=== PATIENT | female | born 1990 | race Caucasian/White ===

== ENCOUNTER 2016-11-17 20:00 | Inpatient (IN) | payer BC ==
[~2016-11-17] VITALS: Ht 154.9 cm; Wt 61.7 kg
[2016-11-17 20:45] VITALS: BP 121/73
[2016-11-17] MEDS ORDERED: AMPICILLIN 2000 MG INJECTION (IM/IV) ONE (20:48)
[2016-11-17] MEDS ORDERED: NORMAL SALINE (BAXTER MINI) 50 ML IV ONE (20:48)
[2016-11-17] MEDS ORDERED: MISOPROSTOL 100 MCG (CYTOTEC) TAB ONE (20:49)
[2016-11-17] MEDS: LACTATED RINGERS 1,000 ML IV SCH (21:00)
[2016-11-17 21:45] VITALS: BP 119/70
[2016-11-17] MEDS ORDERED: VALA500T4 PO (22:07)
[2016-11-17] MEDS ORDERED: PREN1TAB86 PO (22:07)
[2016-11-17] MEDS ORDERED: AMPICILLIN INJECTION 2,000 MG in NORMAL SALINE (BAXTER MINI) 50 ML IV SCH (22:10)
[2016-11-17] MEDS ORDERED: MINERAL OIL CONCENTRATE 99.9% 15 ML UDC TOP PRN (22:15)
[2016-11-17] MEDS ORDERED: LIDOCAINE/EPI 1%-1:200,000 (XYLOCAINE) 30 ML VIAL INJ PRN (22:15)
[2016-11-17 22:21] LABS: BASOPHILS % (AUTO) 0 % (0-10); EOSINOPHILS # (AUTO) 0.1 10^3/uL (0.0-0.3); EOSINOPHILS % (AUTO) 1 % (0-10); LYMPHOCYTES # (AUTO) 2.4 X 10^3 (1.0-4.0); LYMPHOCYTES % (AUTO) 21 % (12-44); MEAN CORPUSCULAR HEMOGLOBIN 30 PG (25-34); MEAN CORPUSCULAR HGB CONC 34 G/DL (32-36); MEAN CORPUSCULAR VOLUME 89 FL (80-99); MEAN PLATELET VOLUME 10.9 FL (7.4-10.4); MONOCYTES # (AUTO) 0.8 X 10^3 (0.0-1.0); MONOCYTES % (AUTO) 7 % (0-12); NEUTROPHILS # (AUTO) 8.4 X 10^3 (1.8-7.8); NEUTROPHILS % (AUTO) 72 % (42-75); PLATELET COUNT 305 10^3/uL (130-400); RED BLOOD COUNT 4.05 10^6/uL (4.35-5.85); RED CELL DISTRIBUTION WIDTH 14.5 % (10.0-14.5); WHITE BLOOD COUNT 11.8 10^3/uL (4.3-11.0)
[2016-11-17 22:55] VITALS: BP 116/74
[2016-11-18] VITALS (39 sets, daily range): BP systolic 95–130; BP diastolic 50–72
[2016-11-18] MEDS ORDERED: DINOPROSTONE 10 MG (CERVIDIL) INSERT PV ONE (02:30)
[2016-11-18] MEDS ORDERED: fentaNYL INJECTION 100 MCG/2 ML AMP IVP PRN (02:45)
[2016-11-18] MEDS: AMPICILLIN INJECTION 1,000 MG in NORMAL SALINE (BAXTER MINI) 50 ML IV SCH ×3 (03:10→15:34)
[2016-11-18] MEDS ORDERED: CATHETER FLUSH 10 ML SYR IV SCH (06:00)
[2016-11-18] MEDS ORDERED: D5 LR IV SOLUTION 1,000 ML IV ONE ×2 (08:16→15:05)
[2016-11-18] MEDS ORDERED: OXYTOCIN/NORMAL SALINE 500 ML IV SCH (09:45)
--- NOTE | 2016-11-18 10:17 | History & Physical-OB ---
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, no prodromal symptoms, has been taking valtrex as prescribed History of Labs B+ Antibody neg RI Hep B neg RPR NR HIV neg HSV+ GBS+ GC/CT/neg/neg Allergies and Home Medications Allergies Coded Allergies: No Known Drug Allergies (Unverified , 11/17/16) Home Medications Vit W-Ca,Fe,FA(<1 mg) 1 Each Tablet 1 EACH PO DAILY (Reported) Valacyclovir HCl 500 Mg Tablet 500 MG PO BID (Reported) OB - History Hx of Present Care: Yes Ultrasounds: Normal mid trimester US Obstetrical Complications: None Medical Complications: Other (HSV) Information Induced Hypertension: No Maternal Gestational Diabetes: No Hemorrhage: No Obstetrical History Hx : 1 Hx Para: 0 Delivery History Adverse Rxn to Tranfusion: No Patient Past Medical History see above Social History/Family History HIV/AIDS: No Recent Infectious Disease Expo: No Sexually Transmitted Disease: Yes (herpies on valtrex) Alcohol Use: Denies Use Recreational Drug Use: No Immunizations Date of Pneumonia Vaccine: Aug 28, 2016 Date of Influenza Vaccine: Aug 14, 2016 OB - Admission Exam Physical Exam Vitals: Vital Signs 11/17/16 11/18/16 20:45 06:09 Temp 98.0 Pulse 78 Resp 18 B/P 98/50 O2 Delivery Room Air HEENT: NCAT Heart: Rhythm Normal Lungs: Crackles Abdomen: Gravid Extremities: Normal Reflexes: Normal Cervical Dilatation: 2cm Effacement: 75% Station: -1 Membranes: Intact Heart Rate: 140's Accelerations: Accelerations Present Decelerations: Variable Decelerations (occasional, rare variables, no longer than 30s duration, melanie > 90) Manager Skilled Variability: Average (6-25) Contractions on Admission: 6-10 Minutes Apart Domínguez Scoring Tool (Modified) Dilation (cm): 1-2cm (1) Effacement (%): 80-100% (3) Descent/Station: -1,0 (2) Cervix Consistency: Soft (2) Cervix Position: Anterior (2) Subtract 1 point for: Nulliparity (-1) Domínguez Score: 9 Labs Laboratory Tests Test 11/17/16 21:20 Range/Units Basophils # (Auto) 0.0 0.0-0.1 10^3/uL Basophils (%) (Auto) 0 0-10 % Eosinophils # (Auto) 0.1 0.0-0.3 10^3/uL Eosinophils (%) (Auto) 1 0-10 % Hematocrit 36 35-52 % Hemoglobin 12.3 11.5-16.0 G/DL Lymphocytes # (Auto) 2.4 1.0-4.0 X 10^3 Lymphocytes (%) (Auto) 21 12-44 % Mean Corpuscular Hemoglobin 30 25-34 PG Mean Corpuscular Hemoglobin Concent 34 32-36 G/DL Mean Corpuscular Volume 89 80-99 FL Mean Platelet Volume 10.9 H 7.4-10.4 FL Monocytes # (Auto) 0.8 0.0-1.0 X 10^3 Monocytes (%) (Auto) 7 0-12 % Neutrophils # (Auto) 8.4 H 1.8-7.8 X 10^3 Neutrophils (%) (Auto) 72 42-75 % Platelet Count 305 130-400 10^3/uL Red Blood Count 4.05 L 4.35-5.85 10^6/uL Red Cell Distribution Width 14.5 10.0-14.5 % White Blood Count 11.8 H 4.3-11.0 10^3/uL OB - Assessment/Plan/Diagnosis Plan Plan: Induction Induction Method: per Pitocin Protocol Other Plan 26 y/o G1 @ 40w2d here for elective IOL, GBS+ H/o HSV, on valtrex, no lesions on exam/prodromal symptoms noted Amp per protocol S/p cytotec, cervidil - start pitocin Will AROM when in good contraction pattern ASVD PASHA PEREZ MD Nov 18, 2016 10:17
--- NOTE | 2016-11-18 10:19 | Discharge Inst-Women's Service ---
Discharge Inst-Women's Serv Depart Medication/Instructions New, Converted or Re-Newed RX: RX on Chart Final Diagnosis TIUP, IOL Consults/Follow Up Additional Follow Up: Yes Orders/Referrals [address] Siddiqui Activity Activity: Activity as Tolerated Driving Instructions: You May Drive (unless taking narcotic pain medications) NO SMOKING: NO SMOKING Nothing Inside Vagina: No Douching, No [place], No Tampons Other Activity No heavy lifting, strenuous activity for 2 weeks Diet Discharge Diet: No Restrictions Symptoms to Report to : Bleeding Excessive, Pain Increased, Fever Over 101 Degrees F, Pain/Pressure in Chest, Vaginal Bleeding Increase, Dizziness/Fainting , Nausea/Vomiting, Shortness of Breath For Any Problems or Questions: Contact Your Physician PASHA SIDDIQUI MD Nov 18, 2016 10:19
[2016-11-18] MEDS ORDERED: SUFENTA 1 MCG/ML BUPIVA 0.1% 100 ML ONE (11:23)
[2016-11-18] MEDS ORDERED: LIDOCAINE PF 2% 10 ML (XYLOCAINE) AMP ONE ×3 (11:36→16:25)
[2016-11-18] MEDS ORDERED: BUPIVACAINE 0.25% 30 ML (SENSORCAINE) VIAL ONE ×2 (11:36→11:42)
[2016-11-18] MEDS ORDERED: fentaNYL INJECTION 100 MCG/2 ML AMP ONE (11:42)
[2016-11-18] MEDS ORDERED: LACTATED RINGERS 1,000 ML IV SCH (12:35)
[2016-11-18] MEDS ORDERED: ONDANSETRON 4 MG/2 ML (SDV) Z0FRAN IV PRN ×2 (12:45→17:45)
[2016-11-18] MEDS ORDERED: diphenhydrAMINE 50 MG/ML INJ (BENADRYL) IV PRN (12:45)
[2016-11-18] MEDS ORDERED: EPIDURAL (SUFENTANIL 1 MCG/ML BUPIVACAINE 0.1%) 100 ML EPI PRN (12:45)
[2016-11-18] MEDS ORDERED: NALOXONE 0.4 MG/ML 1 ML (NARCAN) VIAL IV PRN (12:45)
--- NOTE | 2016-11-18 12:57 | Progress Note-Standard ---
Standard Progress Note Progress Notes/Assess & Plan Date Seen 11/18/16 Assess & Plan/Chief Complaint HD#2 Labor Update Note Pt doing well with epidural Vital Sign - Last 12Hours 11/18/16 11/18/16 11/18/16 11/18/16 02:40 04:58 06:09 08:30 Temp 97.8 98.0 98.0 97.7 Pulse 83 93 78 Resp B/P 125/62 110/57 98/50 11/18/16 11/18/16 11/18/16 11/18/16 08:40 09:00 10:15 10:30 Pulse 85 85 89 97 Resp B/P 98/53 108/65 100/68 11/18/16 10:45 Pulse 87 Resp 18 B/P 121/62 Intake and Output 11/18/16 00:00 Intake Total 550 ml Balance 550 ml SVE 3+/80/-1, AROM clear FHR 140/min to mod maritza/occasional variable decels, accelerations present TOCO 3/10 A/P: 26 y/o G1 @ 40w2d here for IOL, GBS+ Pit/AROM, s/p cytotec/cervidil ASVD Labs Laboratory Tests 11/17/16 21:20 PASHA PEREZ MD Nov 18, 2016 12:57
[2016-11-18] MEDS: LACTATED RINGERS 1,000 ML IV SCH (15:20)
[2016-11-18] MEDS ORDERED: METOCLOPRAMIDE INJ 10 MG/2 ML (REGLAN) ONE (16:19)
[2016-11-18] MEDS ORDERED: FAMOTIDINE 20MG/2ML IV (PEPCID) ONE (16:19)
[2016-11-18] MEDS ORDERED: CITRIC ACID/SOB CIT (BICITRA) 30 ML UDC ONE (16:19)
[2016-11-18] MEDS ORDERED: ceFAZolin 1,000 MG (ANCEF) VIAL ONE (16:20)
[2016-11-18] MEDS ORDERED: NORMAL SALINE (BAXTER MINI) 50 ML IV ONE (16:20)
[2016-11-18] MEDS ORDERED: BUPIVACAINE 0.5% 30 ML (SENSORCAINE) VIAL ONE (16:25)
--- NOTE | 2016-11-18 16:40 | Progress Note-Standard ---
Standard Progress Note Progress Notes/Assess & Plan Date Seen 11/18/16 Assess & Plan/Chief Complaint HD#2 Labor Update Note Pt doing well with epidural Vital Sign - Last 12Hours 11/18/16 11/18/16 11/18/16 11/18/16 02:40 04:58 06:09 08:30 Temp 97.8 98.0 98.0 97.7 Pulse 83 93 78 Resp 18 B/P 125/62 110/57 98/50 11/18/16 11/18/16 11/18/16 11/18/16 08:40 09:00 10:15 10:30 Pulse 85 85 89 97 Resp 18 B/P 98/53 108/65 100/68 11/18/16 10:45 Pulse 87 Resp 18 B/P 121/62 Intake and Output 11/18/16 00:00 Intake Total 550 ml Balance 550 ml SVE 4/80/-1 FHR 140, mostly minimal variability, no accels, no response to scalp stimulation TOCO 3-4/10 A/P: 26 y/o G1 @ 40w2d here for IOL, GBS+, now with persistent category 2 tracing despite interventions and remote from delivery I discussed with Mirna that the category 2 tracing is persistent and I am concerned that with loss of response to scalp stimulation, the fetus may not tolerate continued labor. She is a G1 and remote from delivery so I recommended delivery. We discussed risks, benefits and alternatives to the procedure including but not limited to bleeding, infection, damage to surrounding structures (of both mother and infant), perioperative morbidity/ mortality. She is aware of these risks and agrees with my recommendation at this time. Labs Laboratory Tests 11/17/16 21:20 PASHA PEREZ MD Nov 18, 2016 16:40
[2016-11-18] MEDS ORDERED: OXYC-197 PO (16:42)
[2016-11-18] MEDS ORDERED: DOCU-143 PO (16:42)
[2016-11-18] MEDS ORDERED: IBUP-1773 PO (16:42)
[2016-11-18] MEDS ORDERED: FERR-74 PO (16:42)
--- NOTE | 2016-11-18 16:44 | Discharge Inst-Women's Service ---
Discharge Inst-Women's Serv Depart Medication/Instructions New, Converted or Re-Newed RX: RX on Chart Final Diagnosis TIUP, IOL, category 2 tracing remote from delivery, delivery Consults/Follow Up Additional Follow Up: Yes Orders/Referrals 10-[address] Siddiqui [address] Siddiqui Activity Driving Instructions: No Driving for 1 Week (or while taking narcotic pain medications) NO SMOKING: NO SMOKING Nothing Inside Vagina: No Douching, No [place], No Tampons Other Activity No strenuous activity, no heavy lifting > 10 lb until cleared by Dr. Siddiqui Diet Discharge Diet: No Restrictions Symptoms to Report to : Bleeding Excessive, Pain Increased, Fever Over 101 Degrees F, Pain/Pressure in Chest, Vaginal Bleeding Increase, Dizziness/Fainting , Nausea/Vomiting, Shortness of Breath For Any Problems or Questions: Contact Your Physician Skin/Wound Care Infection Signs and Symptoms: Increased Redness, Foul Odor of Wound, Increased Drainage Operative Area Clean and Dry: Keep Incision Clean/Dry Stitches/Faisal/Dermabond: Dermabond Bathing Instructions: PASHA Bell MD Nov 18, 2016 16:44
--- NOTE | 2016-11-18 16:47 | Cesarean Section Operative ---
Procedure Procedure Note Date of Procedure: November 18, 2016 Pre-operative Diagnosis: Mirna Gray is a 26 y/o G1 @ 40w2d with induction of labor, intolerance to labor with persistent category 2 tracing remote from delivery, GBS+ Post-operative Diagnosis: Same plus occiput posterior presentation Procedure: Primary low transverse section Physician: Janeen Siddiqui MD Tooth Polisher: Doreen Bolton DO who was required for retraction of essential neurovascular structures Estimated blood loss: 650 mL Disposition: Recovery room, stable Specimens: Placenta, cord blood/gas Findings: Viable female infant, Apgars 6/9, weight [id number], intact placenta, 3vc, normal appearing uterus, tubes, and ovaries. Indications: Mirna Gray is a 26 y/o G1 @ 40w2d who presented for scheduled induction of labor. Cervical ripening was undertaken with cytotec and subsequently cervidil. AROM occurred with clear fluid and pitocin was started. She progressed to 4cm dilated but the fetus was noted to have a category 2 tracing with minimal variability, variable decelerations and few accelerations and was counseled on the need to expedite delivery after conservative resuscitative measures failed. Procedure Details: The patient was seen in pre-op and the procedure was discussed with the patient in full, including the risks, benefits, and alternatives. All questions were answered. The patient was taken to the operating room and a time out was performed, verifying patient and procedure. After bolus of epidural analgesia, the patient was placed in the dorsal supine with leftward tilt for uterine displacement. Her abdomen was then prepped and draped in the typical sterile fashion. A Pfannenstiel skin incision was made using a scalpel and carried down through the underlying fascia. The fascia was incised in the midline and tented up using Roxanne clamps. On both the inferior and superior fascia side the rectus muscle was dissected off bluntly and sharply using Peguero scissors. The peritoneum was identified and entered bluntly in the midline. This was then stretched laterally using manual strength. After entering the abdominal cavity and confirming lack of intraperitoneal adhesions, a large Arthur retractor was placed and the lower uterine segment was visualized. A bladder flap was created with the use of Metzenbaum scissors. A scalpel was utilized to make a low transverse uterine incision. The infant's head was grasped and brought to the level of the incision. Fundal pressure was applied and infant was delivered without difficulty. Mouth and nares were suctioned with bulb suction. After the umbilical cord was clamped and cut, the was handed off to the pediatric staff. A sample of cord blood was then obtained, as well as cord blood gas. The placenta was delivered intact via uterine massage. The uterus was cleared of all clots and debris. The uterine incision was closed using 0 Vicryl in a running locked fashion. A second imbricated layer was placed using 0 Vicryl in a running fashion as well. The hysterotomy site was examined and hemostasis was observed. The bilateral tubes and ovaries appeared normal. The abdominal gutters were cleared of all clots and debris. A final check of the uterine incision showed it to be hemostatic. Intercede was placed over the hysterotomy. The peritoneum was closed using 3-0 Vicryl in a running fashion. The fascia was closed with 0 Vicryl in a running fashion. The subcutaneous space was hemostatic, and irrigated. The subcutaneous space was closed with 3-0 Vicryl in several single interrupted stitches. The skin was then closed using 4-0 Monocryl in a running subcuticular fashion. The skin edges were reapproximated together and were hemostatic. A pressure dressing was applied. All sponge, lap and needle counts were correct at the end of the procedure per nursing. Copies To 2: JANEEN SIDDIQUI MD, ERIN N MD Nov 18, 2016 16:47 Date Time Temp Pulse Resp B/P Pulse Ox O2 Delivery O2 Flow Rate FiO2 11/18/16 15:15 104/51 11/18/16 15:00 18 98/57 11/18/16 14:45 18 95/52 11/18/16 14:30 96.6 11/18/16 14:15 82 18 130/56 11/18/16 14:00 85 105/56 100 11/18/16 13:45 77 96/52 100 11/18/16 13:30 86 100 11/18/16 13:15 60 18 101/60 99 11/18/16 13:00 97.0 81 100 11/18/16 12:53 71 101/59 100 11/18/16 12:50 74 106/55 100 11/18/16 12:48 75 106/57 100 11/18/16 12:45 85 104/57 100 1/18/17 12:42 96 18 108/57 97 11/18/16 12:39 96 103/65 97 11/18/16 12:36 88 111/65 97 11/18/16 12:30 83 18 110/55 100 17 12:26 94 18 122/59 98 11/18/16 12:23 85 113/57 98 11/18/16 12:15 98 18 121/63 100 11/18/16 12:10 96 18 130/61 100 11/18/16 12:05 88 107/63 97 11/18/16 12:00 97 111/67 100 11/18/16 11:55 84 18 110/72 100 11/18/16 11:45 11/18/16 11:30 11/18/16 11:15 90 18 104/70 11/18/16 11:00 98.6 85 18 109/72 11/18/16 10:45 87 18 121/62 11/18/16 10:30 97 18 100/68 11/18/16 10:15 89 18 108/65 11/18/16 09:00 85 18 11/18/16 08:40 85 18 98/53 11/18/16 08:30 97.7 11/18/16 06:09 98.0 78 18 98/50 11/18/16 04:58 98.0 93 18 110/57 11/18/16 02:40 97.8 83 18 125/62 11/18/16 00:55 77 18 108/60 11/18/16 00:16 78 18 115/70 11/17/16 22:55 97.6 72 18 116/74 11/17/16 21:45 88 18 119/70 11/17/16 20:45 97.6 85 18 121/73 Room Air I & O 11/18/16 07:00 Intake Total 1600 ml Balance 1600 ml Labs Laboratory Tests 11/17/16 21:20: Basophils # (Auto) 0.0, Basophils (%) (Auto) 0, Eosinophils # (Auto) 0.1, Eosinophils (%) (Auto) 1, Hematocrit 36, Hemoglobin 12.3, Lymphocytes # (Auto) 2.4, Lymphocytes (%) (Auto) 21, Mean Corpuscular Hemoglobin 30, Mean Corpuscular Hemoglobin Concent 34, Mean Corpuscular Volume 89, Mean Platelet Volume 10.9H, Monocytes # (Auto) 0.8, Monocytes (%) (Auto) 7, Neutrophils # ( Auto) 8.4H, Neutrophils (%) (Auto) 72, Platelet Count 305, Red Blood Count 4.05L , Red Cell Distribution Width 14.5, White Blood Count 11.8H JANEEN SIDDIQUI MD Nov 18, 2016 16:47
[2016-11-18] MEDS ORDERED: OXYTOCIN/NORMAL SALINE 500 ML IV ONE (17:26)
[2016-11-18] MEDS ORDERED: KETOROLAC 30 MG/ML VIAL ONE (17:26)
[2016-11-18] MEDS ORDERED: ONDANSETRON 4 MG/2 ML (SDV) Z0FRAN IVP PRN (18:15)
[2016-11-18] MEDS ORDERED: TETANUS,DIPTH,PERTUSS P/F (BOOSTRIX) 0.5 ML VIAL IM SCH (18:15)
[2016-11-18] MEDS ORDERED: MEASLES,MUMPS,RUBELLA 1 EA INJ SC SCH (18:15)
[2016-11-18] MEDS: KETOROLAC 30 MG/ML VIAL IVP SCH (18:15)
[2016-11-18] MEDS: OXYTOCIN/NORMAL SALINE 500 ML IV SCH ×2 (18:52→23:24)
[2016-11-18] MEDS: DOCUSATE SODIUM 100 MG (COLACE) CAP PO SCH (21:10)
[2016-11-18] MEDS ORDERED: MISOPROSTOL 100 MCG (CYTOTEC) TAB PO ONE (22:00)
[2016-11-18] MEDS ORDERED: AMPICILLIN INJECTION 2,000 MG in NORMAL SALINE (BAXTER MINI) 50 ML IV ONE (22:10)
[2016-11-18] MEDS: oxyCODONE/APAP 5/325MG (PERCOCET 5) TABLET PO PRN (23:24)
[2016-11-19] MEDS: KETOROLAC 30 MG/ML VIAL IVP SCH ×2 (00:42→06:22)
[2016-11-19 01:00] VITALS: BP 114/64
[2016-11-19 04:00] VITALS: BP 114/67
[2016-11-19 06:31] LABS: BASOPHILS % (AUTO) 0 % (0-10); EOSINOPHILS % (AUTO) 0 % (0-10); LYMPHOCYTES # (AUTO) 1.9 X 10^3 (1.0-4.0); LYMPHOCYTES % (AUTO) 14 % (12-44); MEAN CORPUSCULAR HEMOGLOBIN 30 PG (25-34); MEAN CORPUSCULAR HGB CONC 34 G/DL (32-36); MEAN CORPUSCULAR VOLUME 89 FL (80-99); MEAN PLATELET VOLUME 9.9 FL (7.4-10.4); MONOCYTES % (AUTO) 7 % (0-12); NEUTROPHILS # (AUTO) 10.6 X 10^3 (1.8-7.8); NEUTROPHILS % (AUTO) 79 % (42-75); PLATELET COUNT 224 10^3/uL (130-400); RED BLOOD COUNT 3.25 10^6/uL (4.35-5.85); WHITE BLOOD COUNT 13.6 10^3/uL (4.3-11.0)
--- NOTE | 2016-11-19 09:43 | Progress Note-Standard ---
Standard Progress Note Progress Notes/Assess & Plan Progress/Assessment & Plan Patient doing well today, POD 1 PLTCS. Reports light lochia. Pain well controlled. Ambulating and voiding freely. Tolerating regular diet. Vital Sign - Last 24 Hours 11/18/16 11/18/16 11/18/16 11/18/16 10:15 10:30 10:45 11:00 Temp 98.6 Pulse 89 97 87 85 Resp 18 18 18 18 B/P 108/65 100/68 121/62 109/72 11/18/16 11/18/16 11/18/16 11/18/16 11:15 11:30 11:45 11:55 Pulse 90 84 Resp 18 18 B/P 104/70 110/72 Pulse Ox 100 11/18/16 11/18/16 11/18/16 11/18/16 12:00 12:05 12:10 12:15 Pulse 97 88 96 98 Resp 18 18 B/P 111/67 107/63 130/61 121/63 Pulse Ox 100 97 100 100 11/18/16 11/18/16 11/18/16 11/18/16 12:23 12:26 12:30 12:36 Pulse 85 94 83 88 Resp 18 18 B/P 113/57 122/59 110/55 111/65 Pulse Ox 98 98 100 97 11/18/16 11/18/16 11/18/16 11/18/16 12:39 12:42 12:45 12:48 Pulse 96 96 85 75 Resp 18 B/P 103/65 108/57 104/57 106/57 Pulse Ox 97 97 100 100 11/18/16 11/18/16 11/18/16 11/18/16 12:50 12:53 13:00 13:15 Temp 97.0 Pulse 74 71 81 60 Resp 18 B/P 106/55 101/59 101/60 Pulse Ox 100 100 100 99 11/18/16 11/18/16 11/18/16 11/18/16 13:30 13:45 14:00 14:15 Pulse 86 77 85 82 Resp 18 B/P 96/52 105/56 130/56 Pulse Ox 100 100 100 11/18/1617 11/18/16 11/18/16 14:30 14:45 15:00 15:15 Temp 96.6 Resp 18 18 B/P 95/52 98/57 104/51 11/18/16 11/18/16 11/18/16 11/18/16 15:30 15:45 16:00 16:15 Pulse 85 63 63 64 B/P 102/56 108/66 110/63 115/72 O2 Delivery Non Rebreather Non Rebreather Non Rebreather Non Rebreather O2 Flow Rate 10.00 10.00 10.00 10.00 11/18/16 11/18/16 11/18/16 11/18/16 16:30 16:42 20:10 21:10 Temp 99.3 99.5 Pulse 74 87 Resp 18 18 B/P 114/72 117/72 Pulse Ox 99 O2 Delivery Non Rebreather Non Rebreather Room Air Room Air O2 Flow Rate 10.00 10.00 11/19/16 11/19/16 01:00 04:00 Temp 99.2 98.7 Pulse 82 93 Resp 18 18 B/P 114/64 114/67 Pulse Ox 98 98 O2 Delivery Room Air Room Air Intake and Output 11/18/16 11/18/16 11/19/16 15:00 23:00 07:00 Intake Total 1000 ml 600 ml 2260 ml Output Total 1050 ml 1200 ml Balance 1000 ml -450 ml 1060 ml INcision: c/d/i Laboratory Tests Test 11/19/16 06:06 Range/Units Basophils # (Auto) 0.0 0.0-0.1 10^3/uL Basophils (%) (Auto) 0 0-10 % Eosinophils # (Auto) 0.0 0.0-0.3 10^3/uL Eosinophils (%) (Auto) 0 0-10 % Hematocrit 29 L 35-52 % Hemoglobin 9.8 #L 11.5-16.0 G/DL Lymphocytes # (Auto) 1.9 1.0-4.0 X 10^3 Lymphocytes (%) (Auto) 14 12-44 % Mean Corpuscular Hemoglobin 30 25-34 PG Mean Corpuscular Hemoglobin Concent 34 32-36 G/DL Mean Corpuscular Volume 89 80-99 FL Mean Platelet Volume 9.9 7.4-10.4 FL Monocytes # (Auto) 1.0 0.0-1.0 X 10^3 Monocytes (%) (Auto) 7 0-12 % Neutrophils # (Auto) 10.6 H 1.8-7.8 X 10^3 Neutrophils (%) (Auto) 79 H 42-75 % Platelet Count 224 130-400 10^3/uL Red Blood Count 3.25 L 4.35-5.85 10^6/uL Red Cell Distribution Width 14.0 10.0-14.5 % White Blood Count 13.6 H 4.3-11.0 10^3/uL Diagnosis: POD 1 PLTCS Acute blood loss anemia P: Continue routine PO care replace iron Anticipate dc tomorrow if continues to improve SHELL ANDERSON DO Nov 19, 2016 9:43 am
[2016-11-19] MEDS: DOCUSATE SODIUM 100 MG (COLACE) CAP PO SCH ×2 (09:46→20:52)
[2016-11-19] MEDS: FERROUS SULF 325 MG (IRON) TAB PO SCH (09:46)
[2016-11-19] MEDS: oxyCODONE/APAP 5/325MG (PERCOCET 5) TABLET PO PRN ×2 (09:47→18:52)
[2016-11-19 09:49] VITALS: BP 110/76
[2016-11-19] MEDS ORDERED: IBUPROFEN 800 MG (MOTRIN) TAB PO ONE (12:27)
[2016-11-19] MEDS: IBUPROFEN 800 MG (MOTRIN) TAB PO SCH ×2 (12:36→17:51)
[2016-11-19 14:20] VITALS: BP 108/72
--- NOTE | 2016-11-19 14:23 | Anesthesia-Regional Post-Op ---
Regional Patient Condition Mental Status: Alert, Oriented x3 Circulation: Same as Pre-Op Headache: Absent Sensation: Full Recovery Motor Block: Absent Post Op Complications Complications None Follow Up Care/Instructions Patient Instructions None needed. Anesthesia/Patient Condition Patient is doing well, no complaints, stable vital signs, no apparent adverse anesthesia problems. No complications reported per nursing. IQRA BOLTON CRNA Nov 19, 2016 14:23
[2016-11-19 20:52] VITALS: BP 105/70
[2016-11-20] MEDS: IBUPROFEN 800 MG (MOTRIN) TAB PO SCH ×2 (02:08→08:07)
[2016-11-20 02:09] VITALS: BP 106/69
[2016-11-20] MEDS: oxyCODONE/APAP 5/325MG (PERCOCET 5) TABLET PO PRN ×2 (02:09→10:09)
[2016-11-20 08:04] VITALS: BP 111/77
--- NOTE | 2016-11-20 09:14 | Progress Note-Standard ---
Standard Progress Note Progress Notes/Assess & Plan Progress/Assessment & Plan Patient doing well today, POD 2 PLTCS. Reports light lochia. Pain well controlled. Ambulating and voiding freely. Tolerating regular diet. Vital Signs 11/18/16 11/20/16 16:42 08:04 Temp 99.1 Pulse 82 Resp 18 B/P 111/77 Pulse Ox 99 O2 Delivery Room Air O2 Flow Rate 10.00 INcision: c/d/i Diagnosis: POD 2 PLTCS Acute blood loss anemia P: Continue routine PO care replace iron DC today SHELL ANDERSON DO Nov 20, 2016 9:14 am
[2016-11-20] MEDS: FERROUS SULF 325 MG (IRON) TAB PO SCH (10:09)
--- NOTE | 2016-12-02 18:08 | Discharge Summary ---
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, no prodromal symptoms, has been taking valtrex as prescribed Discharge Summary Discharge Physical Examination Allergies: Coded Allergies: No Known Drug Allergies (Unverified , 11/17/16) Vitals & I&Os See nursing documentation General Appearance: Alert, Oriented X3 Abdominal: Soft, No Tenderness, Other (incision c/d/i) Hospital Course Mirna is a 26 y/o G1 who presented for post-dates IOL intolerance to labor was noted and remote from delivery despite resuscitative measures, did not improve Primary CD was performed Post-op course was unremarkable She was discharged home in stable condition with her infant Discharge Instructions to patient/family Please see electonic discharge instructions given to patient. Discharge Medications Reviewed and agree with Discharge Medication list on patient's Discharge Instruction sheet Clinical Quality Measures DVT/VTE Risk/Contraindication: Risk Factor Score Per Nursin RFS Level Per Nursing on Admit: 1=Low/No VTE PPX PASHA PEREZ MD Dec 02, 2016 18:08
== END 2016-11-20 14:00 | disposition home or self-care (01) | DRG 765 ==
LOC: LDRP 20:39
PROVIDERS: ADMIT Obstetrics & Gynecology; ATTEND Obstetrics & Gynecology
PROC: 3E0DXGC Introduction of Other Therapeutic Substance into Mouth and Pharynx, External Approach (ICD-10-PCS; 2016-11-17)
PROC: 10D00Z1 Extraction of Products of Conception, Low, Open Approach (ICD-10-PCS; principal; 2016-11-18 16:45)
DX: O64.0XX0 Obstructed labor due to incomplete rotation of fetal head, not applicable or unspecified (principal); O98.52 Other viral diseases complicating childbirth; O99.824 Streptococcus B carrier state complicating childbirth; O90.81 Anemia of the puerperium; D62 Acute posthemorrhagic anemia; Z37.0 Single live birth; Z3A.40 40 weeks gestation of pregnancy
CPT/HCPCS: 36415; 85025; 86850; 86900; 86901; 94664

== ENCOUNTER → 2018-03-14 | Outpatient (CLI) | payer BC ==
[~2018-03-14] MED LIST: DOCU-143 PO; FERR325T18 PO; IBUP-1773 PO; OXYC-197 PO; PREN1TAB86 PO; VALA500T4 PO
--- NOTE | 2018-03-14 17:12 | Diagnostic Imaging Report ---
INDICATION: anatomy survey. TECHNIQUE: Multiple real-time grayscale images were obtained over the gravid uterus. COMPARISON: None FINDINGS: There is a single live intrauterine . Due to advanced gestational age, maternal adnexa are not well visualized. The amount of amniotic fluid appears visually appropriate. The placenta is posterior and fundal in position, and there is no previa. Cervix is closed measuring approximately 4.1 cm in length. anatomy survey was performed, and the following structures are normal: Cerebellum, cisterna magna, cerebral ventricles, umbilical cord insertion, urinary bladder, four-chamber heart, stomach, and both lower extremities. The spine was suboptimally visualized in its entirety. Biometrical measurements are as follows: Biparietal 4.9 cm, age 20 weeks 6 days. Head circumference 17.59 cm, age 20 weeks 1 days. Abdominal circumference 15.72 cm, age 21 weeks 0 days. Femur length 3.21 cm, age 20 weeks 0 days. Sonographic estimate age: 20 weeks 4 days. Sonographic estimated date of delivery: 07/28/2018. Estimated Weight: 354 gm (+/- 52 gm). LMP percentile: 85%. heart rate: 146 beats per minute. number: 1 of 1. IMPRESSION: Single live intrauterine with normal anatomy survey. The spine was suboptimally seen, and a followup short-term ultrasound could be performed for better assessment. Dictated by: Dictated on workstation # [id number]
== END ==
LOC: RAD 15:29
PROVIDERS: ATTEND Obstetrics & Gynecology
DX: Z36.89 Encounter for other specified antenatal screening (principal); Z3A.20 20 weeks gestation of pregnancy
CPT/HCPCS: 76805

== ENCOUNTER → 2018-05-23 | Outpatient (CLI) | payer BC ==
--- NOTE | 2018-05-23 15:29 | Diagnostic Imaging Report ---
INDICATION: Followup spine. TECHNIQUE: Multiple real-time grayscale images were obtained over the gravid uterus. COMPARISON: 03/14/2018. FINDINGS: There is a single living intrauterine in a cephalic presentation. The placenta is posterior. There is no previa. The amniotic fluid index is 10.3. Heart rate is 149 beats per minute and regular. The evaluation of the spine was within normal limits. Biometry correlates with gestational age of 31 weeks 3 days. Biometrical measurements are as follows: Biparietal 8.2 cm, age 32 weeks 6 days. Head circumference 29.3 cm, age 32 weeks 3 days. Abdominal circumference 25.0 cm, age 29 weeks 2 days. Femur length 5.9 cm, age 5.9 weeks 30 days. Sonographic estimate age: 31 weeks 3 days. Sonographic estimated date of delivery: 07/22/18. Estimated Weight: 1547 gm (+/- 226 gm). LMP percentile: 58%. heart rate: 6 beats per minute. number: 1 of 1. IMPRESSION: Single living intrauterine with a sonographically estimated gestational age of 31 weeks 3 days. Reevaluation of the spine demonstrates no abnormality. Dictated by: Dictated on workstation # [id number]
== END ==
LOC: RAD 14:07
PROVIDERS: ATTEND Obstetrics & Gynecology
DX: O26.849 Uterine size-date discrepancy, unspecified trimester (principal); O34.219 Maternal care for unspecified type scar from previous cesarean delivery; Z3A.31 31 weeks gestation of pregnancy
CPT/HCPCS: 76816

== ENCOUNTER 2018-07-21 05:40 | Outpatient (CLI) | payer BC ==
[~2018-07-21] VITALS: Ht 154.9 cm; Wt 62.1 kg
[~2018-07-21 05:40] MED LIST changes: -OXYC-197 PO; +OXYC1TAB87 PO
[2018-07-29] MEDS ORDERED: IBUP-844 PO (08:38)
[2018-07-29] MEDS ORDERED: ACHD5005 PO (08:38)
[2018-07-29] MEDS ORDERED: DOCU100C37 PO (08:38)
== END 2018-07-21 13:37 | disposition home or self-care (01) ==
LOC: PREOP 05:40
PROVIDERS: ATTEND Obstetrics & Gynecology
DX: Z01.818 Encounter for other preprocedural examination (principal)

== ENCOUNTER 2018-07-27 10:36 | Inpatient (IN) | payer BC ==
[~2018-07-27] VITALS: Ht 154.9 cm; Wt 63.1 kg
[~2018-07-27 10:36] MED LIST changes: +LACTATED RINGERS 1,000 ML IV ONE
[2018-07-27 10:45] VITALS: BP 127/67
[2018-07-27] MEDS ORDERED: FAMOTIDINE 20MG/2ML IV (PEPCID) IV ONE (11:00)
[2018-07-27] MEDS ORDERED: ceFAZolin INJECTION 1,000 MG in NS (IVPB) 50 ML IV ONE (11:00)
[2018-07-27] MEDS ORDERED: CITRIC ACID/SOB CIT (BICITRA) 30 ML UDC PO ONE (11:00)
[2018-07-27] MEDS ORDERED: METOCLOPRAMIDE INJ 10 MG/2 ML (REGLAN) IV ONE (11:00)
[2018-07-27] MEDS ORDERED: OXYTOCIN/NORMAL SALINE 1,000 ML IV ONE ×2 (11:20→13:06)
[2018-07-27 11:25] LABS: BILIRUBIN,URINE NEGATIVE (NEGATIVE); CLARITY,URINE SLIGHTLY CLOUDY; COLOR,URINE YELLOW; GLUCOSE, URINE (UA) NEGATIVE (NEGATIVE); KETONES,URINE NEGATIVE (NEGATIVE); LEUKOCYTE ESTERASE ,URINE 3+ (NEGATIVE); NITRITE,URINE NEGATIVE (NEGATIVE); PH,URINE 7 (5-9); PROTEIN,URINE NEGATIVE (NEGATIVE); UROBILINOGEN,URINE NORMAL (NORMAL)
[2018-07-27] MEDS ORDERED: fentaNYL INJECTION 100 MCG/2 ML AMP ONE (11:28)
[2018-07-27 11:32] LABS: BACTERIA,URINE MODERATE /HPF; SQUAMOUS EPITHELIAL CELL,UR 25-50 /HPF
[2018-07-27] MEDS ORDERED: LIDOCAINE PF 2% 5 ML (XYLOCAINE) VIAL ONE (11:32)
[2018-07-27] MEDS ORDERED: ceFAZolin 1,000 MG/10 ML (ANCEF) VIAL ONE ×2 (11:32)
[2018-07-27] MEDS ORDERED: NS (IVPB) 50 ML ONE (11:33)
[2018-07-27 11:35] LABS: BASOPHILS % (AUTO) 0 % (0-10); EOSINOPHILS % (AUTO) 0 % (0-10); HEMATOCRIT 38 % (35-52); HEMOGLOBIN 13.3 G/DL (11.5-16.0); LYMPHOCYTES # (AUTO) 2.2 X 10^3 (1.0-4.0); LYMPHOCYTES % (AUTO) 31 % (12-44); MEAN CORPUSCULAR HEMOGLOBIN 31 PG (25-34); MEAN CORPUSCULAR HGB CONC 35 G/DL (32-36); MEAN CORPUSCULAR VOLUME 90 FL (80-99); MEAN PLATELET VOLUME 10.4 FL (7.4-10.4); MONOCYTES # (AUTO) 0.5 X 10^3 (0.0-1.0); MONOCYTES % (AUTO) 7 % (0-12); NEUTROPHILS # (AUTO) 4.4 X 10^3 (1.8-7.8); NEUTROPHILS % (AUTO) 61 % (42-75); PLATELET COUNT 236 10^3/uL (130-400); RED BLOOD COUNT 4.23 10^6/uL (4.35-5.85); RED CELL DISTRIBUTION WIDTH 13.7 % (10.0-14.5); WHITE BLOOD COUNT 7.1 10^3/uL (4.3-11.0)
[2018-07-27] MEDS: LACTATED RINGERS 1,000 ML IV PRN ×2 (11:37→12:45)
--- NOTE | 2018-07-27 12:36 | Progress Note-Pre Operative ---
Pre-Operative Progress Note H&P Reviewed The H&P was reviewed, patient examined and no changes noted. Date Seen by Provider: Jul 27, 2018 Time Seen by Provider: 12:10 Date H&P Reviewed: Jul 27, 2018 Time H&P Reviewed: 12:00 Pre-Operative Diagnosis: previous section BETTYE CALI DO Jul 27, 2018 12:36
[2018-07-27] MEDS ORDERED: BUPIVACAINE SPINAL 0.75% (SENSORCAINE) 2 ML AMP ONE (13:06)
[2018-07-27] MEDS ORDERED: KETOROLAC 30 MG/ML VIAL ONE (13:06)
[2018-07-27] MEDS ORDERED: ONDANSETRON 4 MG/2 ML (SDV) Z0FRAN ONE ×2 (13:06→21:20)
[2018-07-27] MEDS ORDERED: ROPIVACAINE 5MG/ML 30ML VIAL ONE (13:07)
[2018-07-27] MEDS ORDERED: OXYTOCIN/NORMAL SALINE 500 ML IV SCH (13:14)
[2018-07-27] MEDS ORDERED: HYDROmorphone 2 MG/ML VIAL (DILAUDID) IV PRN (13:15)
[2018-07-27] MEDS ORDERED: MEASLES,MUMPS,RUBELLA 1 EA INJ SC SCH (13:15)
[2018-07-27] MEDS ORDERED: TETANUS,DIPTH,PERTUSS P/F (BOOSTRIX) 0.5 ML VIAL IM SCH (13:15)
--- NOTE | 2018-07-27 13:39 | Cesarean Section Operative ---
Procedure Procedure Note Pre-operative Diagnosis: Mirna Gray is a 28 /Para 2/1 , Gestational Age 39 weeks with history of previous section Post-operative Diagnosis: same Procedure: Primary low transverse section Physician: BETTYE CALI [employer] Customizer: NAVI Estimated blood loss: 500 mL Disposition: donald lazo Findings: Viable male , Apgars 8/9, weight 7311oz, intact placenta, 3vc, normal appearing uterus, tubes, and ovaries. Indications:Mirna Gray is a 28 /Para 2/1 ,Gestational Age 39 weeks with history of previous section Procedure Details: The patient was seen in pre-op and the procedure was discussed with the patient in full, including the risks, benefits, and alternatives. All questions were answered. The patient was taken to the operating room and a time out was performed, verifying patient and procedure. After spinal anesthesia was placed by our anesthesia colleagues, the patient was placed in the dorsal supine with leftward tilt for uterine displacement.~ Her abdomen was then prepped and draped in the typical sterile fashion. A Pfannenstiel skin incision was made using a scalpel and carried down through the underlying fascia. The fascia was incised in the midline and tented up using Roxanne clamps. On both the inferior and superior fascia side the rectus muscle was dissected off bluntly and sharply using Peguero scissors. The peritoneum was identified and entered bluntly in the midline. This was then stretched laterally using manual strength. After entering the abdominal cavity and confirming lack of intraperitoneal adhesions, a large Arthur retractor was placed and the lower uterine segment was visualized. A scalpel was utilized to make a low transverse uterine incision. Amniotomy was performed with an Allis clamp with return of clear fluid. The infant's head was grasped and brought to the level of the incision. Fundal pressure was applied and was delivered without difficulty. Mouth and nares were suctioned with bulb suction. After the umbilical cord was clamped and cut, the was handed off to the pediatric staff. A sample of cord blood was then obtained. The placenta was delivered intact via uterine massage. The uterus was cleared of all clots and debris. The uterine incision was closed using 0 Vicryl in a running locked fashion. A second imbricated layer was placed using 0 Vicryl in a running fashion as well. The uterus was flexed forward and the posterior rectouterine space was inspected and cleared of all clots and debris. Again the hysterotomy site was examined and hemostasis was observed. The bilateral tubes and ovaries appeared normal. The abdominal gutters were cleared of all clots and debris. A final check of the uterine incision showed it to be hemostatic. The peritoneum was closed using 3-0 Vicryl in a running fashion. The fascia was closed with 0 Vicryl in a running fashion. The subcutaneous space was hemostatic , and irrigated. The subcutaneous space was closed with 3-0 Vicryl in several single interrupted stitches. The skin was then closed using 4-0 Monocryl in a running subcuticular fashion. The skin edges were reapproximated together and were hemostatic. A pressure dressing was applied. All sponge, lap and needle counts were correct at the end of the procedure per nursing. Vitals - Labs Labs Laboratory Tests 07/27/18 11:00: White Blood Count 7.1, Red Blood Count 4.23L, Hemoglobin 13.3, Hematocrit 38, Mean Corpuscular Volume 90, Mean Corpuscular Hemoglobin 31, Mean Corpuscular Hemoglobin Concent 35, Red Cell Distribution Width 13.7, Platelet Count 236, Mean Platelet Volume 10.4, Neutrophils (%) (Auto) 61, Lymphocytes (%) (Auto) 31 , Monocytes (%) (Auto) 7, Eosinophils (%) (Auto) 0, Basophils (%) (Auto) 0, Neutrophils # (Auto) 4.4, Lymphocytes # (Auto) 2.2, Monocytes # (Auto) 0.5, Eosinophils # (Auto) 0.0, Basophils # (Auto) 0.0, Urine Color YELLOW, Urine Clarity SLIGHTLY CLOUDY, Urine pH 7, Urine Specific [place] 1.005L, Urine Protein NEGATIVE, Urine Glucose (UA) NEGATIVE, Urine Ketones NEGATIVE, Urine Nitrite NEGATIVE, Urine Bilirubin NEGATIVE, Urine Urobilinogen NORMAL, Urine Leukocyte Esterase 3+H, Urine RBC (Auto) NEGATIVE, Urine RBC NONE, Urine WBC 10- 25H, Urine Squamous Epithelial Cells 25-50H, Urine Crystals NONE, Urine Bacteria MODERATEH, Urine Casts NONE, Urine Mucus NEGATIVE, Urine Culture Indicated YES BETTYE CALI DO Jul 27, 2018 13:39
[2018-07-27 15:15] VITALS: BP 109/62
[2018-07-27] MEDS: HYDROcodone/APAP 5 MG/325 MG (LORTAB) TAB PO PRN ×2 (16:38→22:40)
[2018-07-27 17:50] VITALS: BP 114/71
[2018-07-27] MEDS: KETOROLAC 30 MG/ML VIAL IVP SCH (19:13)
[2018-07-27] MEDS ORDERED: D5 LR IV SOLUTION 1,000 ML IV SCH (19:15)
[2018-07-27] MEDS ORDERED: FLU QUADRIvalent (5+ YOA) 2018-2019 (AFLURIA) 0.5 ML IM ONE (19:15)
[2018-07-27 20:00] VITALS: BP 109/72
[2018-07-28] VITALS (7 sets, daily range): BP systolic 101–118; BP diastolic 7–76
[2018-07-28] MEDS: DOCUSATE SODIUM 100 MG (COLACE) CAP PO SCH ×3 (00:02→21:45)
[2018-07-28] MEDS: CATHETER FLUSH 10 ML SYR IV SCH ×3 (00:06→09:01)
[2018-07-28] MEDS: KETOROLAC 30 MG/ML VIAL IVP SCH ×2 (02:07→09:01)
[2018-07-28] MEDS: HYDROcodone/APAP 5 MG/325 MG (LORTAB) TAB PO PRN ×3 (06:26→15:50)
[2018-07-28 06:42] LABS: BASOPHILS % (AUTO) 0 % (0-10); EOSINOPHILS # (AUTO) 0.1 10^3/uL (0.0-0.3); EOSINOPHILS % (AUTO) 0 % (0-10); HEMATOCRIT 35 % (35-52); HEMOGLOBIN 11.8 G/DL (11.5-16.0); LYMPHOCYTES # (AUTO) 2.5 X 10^3 (1.0-4.0); LYMPHOCYTES % (AUTO) 22 % (12-44); MEAN CORPUSCULAR HEMOGLOBIN 31 PG (25-34); MEAN CORPUSCULAR HGB CONC 34 G/DL (32-36); MEAN CORPUSCULAR VOLUME 91 FL (80-99); MEAN PLATELET VOLUME 9.8 FL (7.4-10.4); MONOCYTES # (AUTO) 0.7 X 10^3 (0.0-1.0); MONOCYTES % (AUTO) 6 % (0-12); NEUTROPHILS # (AUTO) 8.1 X 10^3 (1.8-7.8); NEUTROPHILS % (AUTO) 72 % (42-75); PLATELET COUNT 224 10^3/uL (130-400); RED BLOOD COUNT 3.83 10^6/uL (4.35-5.85); RED CELL DISTRIBUTION WIDTH 13.5 % (10.0-14.5); WHITE BLOOD COUNT 11.3 10^3/uL (4.3-11.0)
--- NOTE | 2018-07-28 07:12 | Anesthesia-Regional Post-Op ---
Regional Post Op Complications Complications None Follow Up Care/Instructions Patient Instructions None needed. Anesthesia/Patient Condition Patient is doing well, no complaints, stable vital signs, no apparent adverse anesthesia problems. No complications reported per nursing. IQRA BOLTON CRNA Jul 28, 2018 07:12
--- NOTE | 2018-07-28 10:34 | Postpartum Progress Note ---
Post Op Post-operative Day #1 s/p RLTCS Subjective: Patient is without complaints. Ambulating, voiding after jarvis removed. Tolerating a regular diet without nausea or vomiting. Normal lochia. Pain is well controlled with oral pain medications. Passing flatus. breast feeding. Objective: Laboratory Tests Test 07/27/18 11:00 07/28/18 06:25 Range/Units White Blood Count 7.1 11.3 H 4.3-11.0 10^3/uL Red Blood Count 4.23 L 3.83 L 4.35-5.85 10^6/uL Hemoglobin 13.3 11.8 11.5-16.0 G/DL Hematocrit 38 35 35-52 % Mean Corpuscular Volume 90 91 80-99 FL Mean Corpuscular Hemoglobin 31 31 25-34 PG Mean Corpuscular Hemoglobin Concent 35 34 32-36 G/DL Red Cell Distribution Width 13.7 13.5 10.0-14.5 % Platelet Count 236 224 130-400 10^3/uL Mean Platelet Volume 10.4 9.8 7.4-10.4 FL Neutrophils (%) (Auto) 61 72 42-75 % Lymphocytes (%) (Auto) 31 22 12-44 % Monocytes (%) (Auto) 7 6 0-12 % Eosinophils (%) (Auto) 0 0 0-10 % Basophils (%) (Auto) 0 0 0-10 % Neutrophils # (Auto) 4.4 8.1 H 1.8-7.8 X 10^3 Lymphocytes # (Auto) 2.2 2.5 1.0-4.0 X 10^3 Monocytes # (Auto) 0.5 0.7 0.0-1.0 X 10^3 Eosinophils # (Auto) 0.0 0.1 0.0-0.3 10^3/uL Basophils # (Auto) 0.0 0.0 0.0-0.1 10^3/uL Urine Color YELLOW Urine Clarity SLIGHTLY CLOUDY Urine pH 7 5-9 Urine Specific [place] 1.005 L 1.016-1.022 Urine Protein NEGATIVE NEGATIVE Urine Glucose (UA) NEGATIVE NEGATIVE Urine Ketones NEGATIVE NEGATIVE Urine Nitrite NEGATIVE NEGATIVE Urine Bilirubin NEGATIVE NEGATIVE Urine Urobilinogen NORMAL NORMAL MG/DL Urine Leukocyte Esterase 3+ H NEGATIVE Urine RBC (Auto) NEGATIVE NEGATIVE Urine RBC NONE /HPF Urine WBC 10-25 H /HPF Urine Squamous Epithelial Cells 25-50 H /HPF Urine Crystals NONE /LPF Urine Bacteria MODERATE H /HPF Urine Casts NONE /LPF Urine Mucus NEGATIVE /LPF Urine Culture Indicated YES 07/28/18 07/28/18 07/28/18 00:00 04:15 08:05 Temp 98.1 98.6 98.7 Pulse 76 79 77 Resp 18 18 16 B/P (MAP) 107/68 (81) 104/59 (74) 101/66 (78) Pulse Ox 98 97 100 O2 Delivery Room Air Room Air Room Air 07/28/18 00:00 Intake Total 3435 ml Output Total 515 ml Balance 2920 ml Physical Exam: General - Alert and oriented, no apparent distress Abdomen - Soft, appropriately tender to palpation, non-distended, fundus firm at umbilicus Incision - clean, dry and intact; no erythema or induration, no drainage Extremities - no edema, negative Irwin's bilaterally Assessment: 1. post-operative day # 1, status post RLTCS Recovering well, hemodynamically stable Plan: Routine post-operative care. Encourage breast feeding. Encourage ambulation. VTE prophylaxis: SCDs. DC tomorrow Vitals - Labs Vital Signs - I&O Vital Signs Date Time Temp Pulse Resp B/P (MAP) Pulse Ox O2 Delivery O2 Flow Rate FiO2 07/28/18 08:05 98.7 77 16 101/66 (78) 100 Room Air 07/28/18 04:15 98.6 79 18 104/59 (74) 97 Room Air 07/28/18 00:00 98.1 76 18 107/68 (81) 98 Room Air 07/27/18 20:00 97.6 73 18 109/72 (84) 99 Room Air 07/27/18 17:50 98.4 91 18 114/71 (85) 98 Room Air 07/27/18 15:15 98.2 80 18 109/62 (78) 99 Room Air 07/27/18 10:45 98.1 96 20 127/67 (87) Room Air I & O 07/28/18 07:00 Intake Total 4035 ml Output Total 3965 ml Balance 70 ml Labs Laboratory Tests 07/27/18 11:00: White Blood Count 7.1, Red Blood Count 4.23L, Hemoglobin 13.3, Hematocrit 38, Mean Corpuscular Volume 90, Mean Corpuscular Hemoglobin 31, Mean Corpuscular Hemoglobin Concent 35, Red Cell Distribution Width 13.7, Platelet Count 236, Mean Platelet Volume 10.4, Neutrophils (%) (Auto) 61, Lymphocytes (%) (Auto) 31 , Monocytes (%) (Auto) 7, Eosinophils (%) (Auto) 0, Basophils (%) (Auto) 0, Neutrophils # (Auto) 4.4, Lymphocytes # (Auto) 2.2, Monocytes # (Auto) 0.5, Eosinophils # (Auto) 0.0, Basophils # (Auto) 0.0, Urine Color YELLOW, Urine Clarity SLIGHTLY CLOUDY, Urine pH 7, Urine Specific [place] 1.005L, Urine Protein NEGATIVE, Urine Glucose (UA) NEGATIVE, Urine Ketones NEGATIVE, Urine Nitrite NEGATIVE, Urine Bilirubin NEGATIVE, Urine Urobilinogen NORMAL, Urine Leukocyte Esterase 3+H, Urine RBC (Auto) NEGATIVE, Urine RBC NONE, Urine WBC 10- 25H, Urine Squamous Epithelial Cells 25-50H, Urine Crystals NONE, Urine Bacteria MODERATEH, Urine Casts NONE, Urine Mucus NEGATIVE, Urine Culture Indicated YES 07/28/18 06:25: White Blood Count 11.3H, Red Blood Count 3.83L, Hemoglobin 11.8, Hematocrit 35, Mean Corpuscular Volume 91, Mean Corpuscular Hemoglobin 31, Mean Corpuscular Hemoglobin Concent 34, Red Cell Distribution Width 13.5, Platelet Count 224, Mean Platelet Volume 9.8, Neutrophils (%) (Auto) 72, Lymphocytes (%) (Auto) 22, Monocytes (%) (Auto) 6, Eosinophils (%) (Auto) 0, Basophils (%) (Auto) 0, Neutrophils # (Auto) 8.1H, Lymphocytes # (Auto) 2.5, Monocytes # (Auto) 0.7, Eosinophils # (Auto) 0.1, Basophils # (Auto) 0.0 BETTYE CALI DO Jul 28, 2018 10:34
[2018-07-28] MEDS: IBUPROFEN 600 MG (MOTRIN) TAB PO SCH ×2 (14:04→19:50)
[2018-07-29] MEDS: HYDROcodone/APAP 5 MG/325 MG (LORTAB) TAB PO PRN (00:56)
[2018-07-29 03:00] VITALS: BP 110/9
[2018-07-29] MEDS: IBUPROFEN 600 MG (MOTRIN) TAB PO SCH ×2 (03:10→09:10)
[2018-07-29] MEDS ORDERED: ACHD5005 PO (08:38)
[2018-07-29] MEDS ORDERED: IBUP-844 PO (08:38)
[2018-07-29] MEDS ORDERED: DOCU100C37 PO (08:38)
[2018-07-29] MEDS: DOCUSATE SODIUM 100 MG (COLACE) CAP PO SCH (09:09)
[2018-07-29 09:15] VITALS: BP 113/71
--- NOTE | 2018-07-29 10:23 | Discharge Inst-Women's Service ---
Discharge Inst-Women's Serv Depart Medication/Instructions New, Converted or Re-Newed RX: RX on Chart Final Diagnosis previous section 39 weeks Consults/Follow Up Additional Follow Up: Yes (1 week and 6 weeks jesusita Bolton) Activity Activity: Activity as Tolerated Driving Instructions: No Driving for 1 Week NO SMOKING: NO SMOKING Nothing Inside Vagina: No Douching, No [place], No Tampons Diet Discharge Diet: No Restrictions Symptoms to Report to : Swelling Increased, Bleeding Excessive, Pain Increased, Fever Over 101 Degrees F, Vaginal Bleeding Increase, Cramps in Feet or Legs, Vaginal Discharge Foul For Any Problems or Questions: Contact Your Physician Skin/Wound Care Infection Signs and Symptoms: Increased Redness, Foul Odor of Wound, Increased Drainage, Skin Itchy or Has a Rash, Increased Swelling, Temperature Above 101 F Operative Area Clean and Dry: Keep Incision Clean/Dry Stitches/Faisal/Dermabond: Dermabond Bathing Instructions: BETTYE Rosa DO Jul 29, 2018 10:23
--- NOTE | 2018-07-29 12:55 | Postpartum Progress Note ---
Post Op Post-operative Day #2 s/p RLTCS Subjective: Patient is without complaints. Ambulating, voiding after jarvis removed. Tolerating a regular diet without nausea or vomiting. Normal lochia. Pain is well controlled with oral pain medications. Passing flatus. Objective: 07/29/18 07/29/18 03:00 09:15 Temp 99.0 97.8 Pulse 80 81 Resp 18 18 B/P (MAP) 110/9 (42) 113/71 (85) Pulse Ox 97 97 O2 Delivery Room Air Room Air 07/29/18 00:00 Intake Total 2750 ml Output Total 2000 ml Balance 750 ml Physical Exam: General - Alert and oriented, no apparent distress Abdomen - Soft, appropriately tender to palpation, non-distended, fundus firm at umbilicus Incision - clean, dry and intact; no erythema or induration, no drainage Extremities - no edema, negative Irwin's bilaterally Assessment: 1. post-operative day # 2, status post RLTCS. Recovering well, hemodynamically stable Plan: Routine post-operative care. Encourage breast feeding. Encourage ambulation. VTE prophylaxis: SCDs. Plan for discharge today Vitals - Labs Vital Signs - I&O Vital Signs Date Time Temp Pulse Resp B/P (MAP) Pulse Ox O2 Delivery O2 Flow Rate FiO2 07/29/18 09:15 97.8 81 18 113/71 (85) 97 Room Air 07/29/18 03:00 99.0 80 18 110/9 (42) 97 Room Air 07/28/18 19:50 98.7 73 18 113/7 (42) 99 Room Air 07/28/18 18:00 98.0 74 18 110/68 (82) 98 Room Air I & O 07/29/18 07:00 Intake Total 5000 ml Output Total 5300 ml Balance -300 ml Labs Microbiology 07/27/18 Urine Culture - Final, Complete See Comments BETTYE CALI DO Jul 29, 2018 12:55
== END 2018-07-29 12:20 | disposition home or self-care (01) | DRG 765 ==
LOC: LDRP 10:36 → WS 14:52
PROVIDERS: ADMIT Obstetrics & Gynecology; ATTEND Obstetrics & Gynecology
PROC: 10D00Z1 Extraction of Products of Conception, Low, Open Approach (ICD-10-PCS; principal; 2018-07-27 12:19)
DX: O34.211 Maternal care for low transverse scar from previous cesarean delivery (principal); O98.32 Other infections with a predominantly sexual mode of transmission complicating childbirth; A60.04 Herpesviral vulvovaginitis; Z37.0 Single live birth; Z3A.39 39 weeks gestation of pregnancy; Z79.899 Other long term (current) drug therapy
CPT/HCPCS: 36415; 81000; 85025; 86850; 86900; 86901; 87088; 94664